=== PATIENT | female | born 1980 | race Native Hawaiian/Other Pacific Islander ===

== ENCOUNTER 2021-11-15 09:35 | Inpatient (IN) | payer MEDICAID, OTHER ==
[~2021-11-15] VITALS: Ht 162.6 cm; Wt 65.4 kg
[2021-11-15] MEDS ORDERED: cloNIDine HCL 0.1 MG TAB ONE (09:53)
[2021-11-15] MEDS ORDERED: cloNIDine HCL 0.1 MG TAB PO ONE (10:00)
[2021-11-15 10:53] LABS: Basophils # (auto) 0 10 ^3/uL (0-0.2); Basophils % (auto) 0.3 % (0.0-2.0); Eosinophils # (auto) 0 10 ^3/uL (0-0.8); Eosinophils % (auto) 0.3 % (0.0-7.0); Hematocrit 46.7 % (36.0-46.0); Hemoglobin 15.6 g/dL (12.2-16.2); Lymphocytes # (auto) 0.9 10 ^3/uL (0.4-5.4); Lymphocytes % (auto) 10.2 % (10.0-50.0); Mean Corpuscular Hemoglobin 33.9 pg (28.0-32.0); Mean Corpuscular Hgb Conc. 33.4 g/dL (32.0-36.0); Mean Corpuscular Volume 101.4 fL (80.0-100.0); Monocytes # (auto) 0.3 10 ^3/uL (0-1.3); Monocytes % (auto) 3.9 % (0.0-12.0); Neutrophils # (auto) 7.5 10 ^3/uL (1.6-8.6); Neutrophils % (auto) 85.3 % (37.0-80.0); Nucleated Red Blood Cells % 0.2 %; Red Blood Cells 4.61 10^6/uL (4.0-5.20); Red Cell Distribution Width 15.9 % (11.8-14.3); White Blood Cell 8.8 10^3/uL (4.4-10.8)
[2021-11-15 11:14] LABS: Albumin 3.2 g/dL (3.4-5.0); Calcium 6.8 mg/dL (8.5-10.1); Potassium 3.7 mmol/L (3.5-5.1)
[2021-11-15 11:23] LABS: BUN/Creatinine Ratio 13.7; Bilirubin, Total 2.1 mg/dL (0.2-1.0); Total Protein 7.2 g/dL (6.4-8.2)
[2021-11-15] MEDS ORDERED: SODIUM CHLORIDE 0.9% 1,000 ML IV ONE ×2 (12:30)
[2021-11-15] MEDS ORDERED: cefTRIAXone 1GM/50ML D5W 50 ML IV ONE (12:30)
[2021-11-15 13:39] LABS: Alcohol, Urine < 3.0 mg/dL (0-10); Amphetamine Screen, Urine NEGATIVE (NEGATIVE); Barbiturate Scree,Urine NEGATIVE (NEGATIVE); Benzodiazephine Screen, Urine NEGATIVE (NEGATIVE); Cannabinoid Screen, Urine NEGATIVE (NEGATIVE); Cocaine Screen, Urine NEGATIVE (NEGATIVE); Opiate Scree,Urine NEGATIVE (NEGATIVE); Phencyclidine Screen, Urine NEGATIVE (NEGATIVE); Urine Bacteria NONE SEEN /hpf (None Seen); Urine Blood 1+ /uL (Negative); Urine Hyaline Cast FEW /lpf (0 - 2); Urine Mucus FEW (None Seen); Urine Specific Gravity 1.035 (1.001-1.035); Urine WBC 58 /hpf (0 - 5)
[2021-11-15 13:41] LABS: Lactic Acid w/Reflex 3.2 mmol/L (0.4-2.0)
[2021-11-15] MEDS ORDERED: IOHEXOL 300 MG/ML 100ML BOTTLE IJ ONE (13:52)
[2021-11-15] MEDS ORDERED: DEXTROSE (50%) 50ML SYRG IV PRN (17:15)
[2021-11-15] MEDS ORDERED: SODIUM CHLORIDE 0.9% 1,000 ML IV SCH (17:15)
[2021-11-15] MEDS ORDERED: ONDANSETRON HCL 4 MG/2 ML VIAL IV PRN (17:15)
[2021-11-15] MEDS ORDERED: ACETAMINOPHEN 325 MG TAB PO PRN (17:15)
[2021-11-15] MEDS ORDERED: DOCUSATE SOD 100 MG CAP PO PRN (17:15)
[2021-11-15] MEDS ORDERED: D5W/SOD CHL 0.45%/KCL 20MEQ 1,000 ML IV ONE (17:15)
[2021-11-15 17:50] LABS: Magnesium 1.4 mg/dL (1.6-2.6); Phosphorus 1.8 mg/dL (2.5-4.90)
[2021-11-15 18:50] LABS: Lactic Acid w/Reflex 2.7 mmol/L (0.4-2.0)
[2021-11-15] MEDS: InsuLIN REG 1unit/0.01ml Soln (100units/ml) SC SCH (19:08)
[2021-11-15] MEDS: ACCU-CHEK COMFORT CURVE STRIP VI SCH (19:09)
[2021-11-15] MEDS: MORPHINE SULFATE INJ 2 MG/ml SYRG IV PRN (20:33)
[2021-11-15] MEDS: SOD CHL 0.9%/ KCL 20MEQ 1,000 ML IV SCH (20:42)
[2021-11-15 23:47] VITALS: BP 141/101
[2021-11-16] MEDS: MORPHINE SULFATE INJ 2 MG/ml SYRG IV PRN ×5 (01:15→11:10)
[2021-11-16] MEDS: InsuLIN REG 1unit/0.01ml Soln (100units/ml) SC SCH ×5 (01:21→23:25)
[2021-11-16] MEDS: ACCU-CHEK COMFORT CURVE STRIP VI SCH ×5 (01:22→23:23)
[2021-11-16] MEDS: SOD CHL 0.9%/ KCL 20MEQ 1,000 ML IV SCH (03:20)
[2021-11-16 05:00] VITALS: BP 139/99
[2021-11-16 07:00] LABS: Basophils # (auto) 0 10 ^3/uL (0-0.2); Eosinophils # (auto) 0 10 ^3/uL (0-0.8); Mean Corpuscular Hemoglobin 33.4 pg (28.0-32.0); Monocytes # (auto) 0.3 10 ^3/uL (0-1.3); Monocytes % (auto) 4.6 % (0.0-12.0); White Blood Cell 7.5 10^3/uL (4.4-10.8)
[2021-11-16 07:02] LABS: Basophils % (auto) 0.4 % (0.0-2.0); Eosinophils % (auto) 0.7 % (0.0-7.0); Hematocrit 39.6 % (36.0-46.0); Lymphocytes # (auto) 0.9 10 ^3/uL (0.4-5.4); Lymphocytes % (auto) 12.1 % (10.0-50.0); Mean Corpuscular Hgb Conc. 32.9 g/dL (32.0-36.0); Mean Corpuscular Volume 101.4 fL (80.0-100.0); Neutrophils # (auto) 6.2 10 ^3/uL (1.6-8.6); Neutrophils % (auto) 82.2 % (37.0-80.0); Nucleated Red Blood Cells % 0.1 %; Red Cell Distribution Width 16.1 % (11.8-14.3)
[2021-11-16 07:22] LABS: Albumin 2.4 g/dL (3.4-5.0); Potassium 3.5 mmol/L (3.5-5.1)
[2021-11-16 07:32] LABS: BUN/Creatinine Ratio 13.2; Bilirubin, Total 1.4 mg/dL (0.2-1.0); Total Protein 5.9 g/dL (6.4-8.2)
[2021-11-16 07:43] LABS: Calcium 5.2 mg/dL (8.5-10.1)
[2021-11-16 08:50] VITALS: BP 142/105
[2021-11-16] MEDS: FOLIC ACID 1 MG TAB PO SCH (09:36)
[2021-11-16] MEDS: ENOXAPARIN SOD 40 MG/0.4 ML SYRINGE SC SCH (09:36)
[2021-11-16] MEDS: PANTOPRAZOLE 40 MG/10 ML VIAL INJ IV SCH (09:36)
[2021-11-16] MEDS: cefTRIAXone 1GM/50ML D5W 50 ML IV SCH (09:37)
[2021-11-16] MEDS: MULTIPLE VITAMIN TAB PO SCH (09:37)
[2021-11-16] MEDS ORDERED: MULTIPLE VITAMIN TAB PO SCH (10:00)
[2021-11-16] MEDS ORDERED: chlordiazePOXIDE HCL 25 MG CAP PO PRN (12:00)
[2021-11-16] MEDS: FOLIC ACID 1 MG, MULTIPLE VITAMIN 10 ML, MAGNESIUM SULF SDV 50% 8 MEQ, THIAMINE INJ 100... INJ SCH ×5 (13:33)
[2021-11-16] MEDS ORDERED: SODIUM BICARBONATE 8.4 % INJ 50ML VIAL IV ONE (14:00)
[2021-11-16 14:22] VITALS: BP 134/94
[2021-11-16 16:04] VITALS: BP 133/92
[2021-11-16 20:20] VITALS: BP 137/93
[2021-11-16 22:00] VITALS: BP 137/93
[2021-11-16] MEDS: LORazepam 2MG/ML-1ML VIAL IV PRN (23:31)
[2021-11-17 05:00] VITALS: BP 137/87
[2021-11-17] MEDS: InsuLIN REG 1unit/0.01ml Soln (100units/ml) SC SCH ×3 (05:18→17:35)
[2021-11-17] MEDS: ACCU-CHEK COMFORT CURVE STRIP VI SCH ×3 (05:18→17:33)
[2021-11-17 06:34] LABS: Basophils # (auto) 0 10 ^3/uL (0-0.2); Basophils % (auto) 0.3 % (0.0-2.0); Eosinophils # (auto) 0 10 ^3/uL (0-0.8); Eosinophils % (auto) 0.6 % (0.0-7.0); Hematocrit 33.2 % (36.0-46.0); Hemoglobin 11.7 g/dL (12.2-16.2); Lymphocytes # (auto) 0.8 10 ^3/uL (0.4-5.4); Lymphocytes % (auto) 11.9 % (10.0-50.0); Mean Corpuscular Hemoglobin 35.4 pg (28.0-32.0); Mean Corpuscular Hgb Conc. 35.2 g/dL (32.0-36.0); Mean Corpuscular Volume 100.7 fL (80.0-100.0); Monocytes # (auto) 0.4 10 ^3/uL (0-1.3); Monocytes % (auto) 5.6 % (0.0-12.0); Neutrophils # (auto) 5.7 10 ^3/uL (1.6-8.6); Neutrophils % (auto) 81.6 % (37.0-80.0); Red Blood Cells 3.29 10^6/uL (4.0-5.20); Red Cell Distribution Width 16.2 % (11.8-14.3)
[2021-11-17 06:45] LABS: Albumin 2.2 g/dL (3.4-5.0)
[2021-11-17 06:49] LABS: BUN/Creatinine Ratio 11.2; Bilirubin, Total 1.6 mg/dL (0.2-1.0); Total Protein 5.8 g/dL (6.4-8.2)
[2021-11-17 07:08] LABS: Calcium 5.2 mg/dL (8.5-10.1); Potassium 2.7 mmol/L (3.5-5.1)
[2021-11-17] MEDS ORDERED: POTASSIUM EFFERVESENT TAB 25 MEQ PO ONE (07:45)
[2021-11-17 09:00] VITALS: BP 125/81
[2021-11-17] MEDS: CALCIUM GLUC 1,000mg/50ml-NS 50 ML IV SCH ×2 (09:09→10:01)
[2021-11-17] MEDS: cefTRIAXone 1GM/50ML D5W 50 ML IV SCH (09:12)
[2021-11-17] MEDS: FOLIC ACID 1 MG TAB PO SCH (10:09)
[2021-11-17] MEDS: ENOXAPARIN SOD 40 MG/0.4 ML SYRINGE SC SCH (10:10)
[2021-11-17] MEDS: MULTIPLE VITAMIN TAB PO SCH (10:10)
[2021-11-17] MEDS: PANTOPRAZOLE 40 MG/10 ML VIAL INJ IV SCH (10:11)
[2021-11-17 13:00] VITALS: BP 140/92
[2021-11-17] MEDS: FOLIC ACID 1 MG, MULTIPLE VITAMIN 10 ML, MAGNESIUM SULF SDV 50% 8 MEQ, THIAMINE INJ 100... INJ SCH ×5 (13:03)
[2021-11-17 16:44] VITALS: BP 127/85
[2021-11-17 20:25] VITALS: BP 130/86
[2021-11-17] MEDS: POTASSIUM EFFERVESENT TAB 25 MEQ PO SCH (22:13)
[2021-11-17 22:21] VITALS: BP 130/86
[2021-11-18] VITALS (7 sets, daily range): BP systolic 118–138; BP diastolic 60–80
[2021-11-18] MEDS: ACCU-CHEK COMFORT CURVE STRIP VI SCH ×5 (00:05→23:16)
[2021-11-18] MEDS: IBUPROFEN 400 MG TAB PO PRN (00:44)
[2021-11-18] MEDS: InsuLIN REG 1unit/0.01ml Soln (100units/ml) SC SCH ×5 (05:20→23:16)
[2021-11-18 06:01] LABS: Calcium 6.7 mg/dL (8.5-10.1)
[2021-11-18 06:07] LABS: Albumin 2.3 g/dL (3.4-5.0); BUN/Creatinine Ratio 11.6; Total Protein 6.1 g/dL (6.4-8.2)
[2021-11-18] MEDS: cefTRIAXone 1GM/50ML D5W 50 ML IV SCH (08:47)
[2021-11-18] MEDS: PANTOPRAZOLE 40 MG/10 ML VIAL INJ IV SCH (09:33)
[2021-11-18] MEDS: FOLIC ACID 1 MG TAB PO SCH (09:33)
[2021-11-18] MEDS: ENOXAPARIN SOD 40 MG/0.4 ML SYRINGE SC SCH (09:33)
[2021-11-18] MEDS: MULTIPLE VITAMIN TAB PO SCH (09:33)
[2021-11-18] MEDS: FOLIC ACID 1 MG, MULTIPLE VITAMIN 10 ML, MAGNESIUM SULF SDV 50% 8 MEQ, THIAMINE INJ 100... INJ SCH ×5 (10:39)
[2021-11-18] MEDS ORDERED: POTASSIUM CHL 20 Meq TABLET PO ONE (12:00)
[2021-11-18] MEDS: metroNIDAZOLE 500MG/100ML 100 ML IV SCH ×2 (15:13→21:08)
[2021-11-18] MEDS: VANCOMYCIN HCL 125MG/5ML ORAL SOL PO SCH ×2 (17:36→23:09)
[2021-11-18] MEDS: POTASSIUM EFFERVESENT TAB 25 MEQ PO SCH (21:09)
[2021-11-18] MEDS: LORazepam 2MG/ML-1ML VIAL IV PRN (21:25)
[2021-11-18] MEDS: MORPHINE SULFATE INJ 2 MG/ml SYRG IV PRN (22:23)
[2021-11-19 05:00] VITALS: BP 121/73
[2021-11-19 05:06] LABS: Albumin 2.2 g/dL (3.4-5.0); BUN/Creatinine Ratio 7.6; Calcium 7.8 mg/dL (8.5-10.1); Potassium 3.6 mmol/L (3.5-5.1)
[2021-11-19 05:09] LABS: Total Protein 6.5 g/dL (6.4-8.2)
[2021-11-19] MEDS: IBUPROFEN 400 MG TAB PO PRN (05:30)
[2021-11-19] MEDS: metroNIDAZOLE 500MG/100ML 100 ML IV SCH (05:41)
[2021-11-19] MEDS: VANCOMYCIN HCL 125MG/5ML ORAL SOL PO SCH (05:41)
[2021-11-19] MEDS: ACCU-CHEK COMFORT CURVE STRIP VI SCH (06:10)
[2021-11-19] MEDS: InsuLIN REG 1unit/0.01ml Soln (100units/ml) SC SCH (06:11)
[2021-11-19 09:00] VITALS: BP 113/71
[2021-11-19] MEDS: cefTRIAXone 1GM/50ML D5W 50 ML IV SCH (09:10)
[2021-11-19] MEDS: PANTOPRAZOLE 40 MG/10 ML VIAL INJ IV SCH (09:10)
[2021-11-19] MEDS: FOLIC ACID 1 MG TAB PO SCH (09:11)
[2021-11-19] MEDS: MULTIPLE VITAMIN TAB PO SCH (09:11)
[2021-11-19] MEDS: ENOXAPARIN SOD 40 MG/0.4 ML SYRINGE SC SCH (09:12)
[2021-11-19] MEDS ORDERED: VANC250PO PO (09:50)
[2021-11-19] MEDS ORDERED: METR500T PO (09:50)
[2021-11-19] MEDS ORDERED: THIA100T13 PO (09:50)
[2021-11-19] MEDS ORDERED: PANT40T PO (09:50)
[2021-11-19] MEDS ORDERED: FOLI1TAB6 PO (09:50)
[2021-11-19 11:34] VITALS: BP 107/87
[2021-11-21 10:53] LABS: Hepatitis B Surface Antibody Negative (Negative)
[2021-11-21 12:34] LABS: Hepatitis A Total Antibody Negative (Negative)
[2021-11-21 13:24] LABS: Hepatitis C Antibody Negative (Negative)
== END 2021-11-19 13:50 | disposition home or self-care (01) | DRG 282 ==
LOC: ER 09:35 → OVERFLOW 17:13 → WEST WING 22:40
PROVIDERS: ADMIT Nurse Practitioner Family; ATTEND Family Medicine
DX: K85.20 Alcohol induced acute pancreatitis without necrosis or infection (principal); N17.9 Acute kidney failure, unspecified; R18.8 Other ascites; A04.72 Enterocolitis due to Clostridium difficile, not specified as recurrent; E44.1 Mild protein-calorie malnutrition; E83.51 Hypocalcemia; K76.0 Fatty (change of) liver, not elsewhere classified; E87.1 Hypo-osmolality and hyponatremia; R73.9 Hyperglycemia, unspecified; Z20.822 Contact with and (suspected) exposure to COVID-19; F10.20 Alcohol dependence, uncomplicated; E86.0 Dehydration; E87.6 Hypokalemia; Z56.0 Unemployment, unspecified; Z68.24 Body mass index [BMI] 24.0-24.9, adult; Z71.51 Drug abuse counseling and surveillance of drug abuser
CPT/HCPCS: 36415; 74176; 76705; 80053; 80307; 80320; 81001; 82140; 82607; 82746; 82962; 83036; 83605; 83615; 83690; 83735; 84100; 85025; 86704; 86706; 86708; 86803; 87040; 87086; 87340; 87493; 96365; 96367; 96375; C9113; G0378; J0696; J1815; J2405; J3490

== ENCOUNTER 2024-11-26 17:45 | Inpatient (IN) | payer MEDICAID ==
[~2024-11-26] VITALS: Ht 162.6 cm; Wt 60.0 kg
[~2024-11-26 17:45] MED LIST: FOLI-119 PO; METR500T PO; PANT40T PO; THIA100T13 PO; VANC250PO PO
[2024-11-26 18:00] VITALS: PULSE 78; RESP 16; O2SAT 96
--- NOTE | 2024-11-26 18:47 | ED.PDOC ---
Altered Mental Status HPI Comments HPI: 44 year old female presents to the ED with a chief compliant of ETOH intoxication onset 2 days. Patient was brought in by her mother states patient has been consuming ETOH for the past 2 days. Patient states she has been drinking, "alot" does not states amount or when she began. Patient also states she fell, hit her face, experienced LOC. Patient is poor historian. Denies nausea, vomiting, diarrhea, headache, dizziness, chest pain, shortness of breath. No other symptoms or modifying factors present at this time. Initial Vitals BP: 138/93 HR: 99 RR: 20 O2: 95% Temp: 98.2 F Past Medical History: Denies Past Surgical History:Denies Social History: Denies ETOH, smoking, and drug use. Medications:Denies Allergies: NKDA KAHAUNAELE: ETOH, NASLA BRIDGE ABRASION, SWELLING. FALL, LOC HPI: Poor Historian. REVIEW OF SYSTEMS: CONSTITUTIONAL: Denies acute: fever, diaphoresis, chills, generalized weakness. HEAD: Denies acute: headache, photophobia Eyes: Denies acute: Double vision, vision loss, eye pain, eye discharge. EARS: Denies acute: tinnitus, hearing loss, ear discharge, ear pain, THROAT: Denies acute: sore throat, swelling, difficulty swallowing , pain with swallowi ng, change in voice. NECK: Denies acute: neck pain, neck swelling, stiff neck. HEART: Denies acute : chest pain, palpitations, LUNGS: Denies acute: SOB, wheezing, cough, hemoptysis ABDOMEN: Denies acute: abdominal pain, Nausea, Vomiting, diarrhea, melena , hematemesis, hematochezia SKIN: Denies acute: rash, redness, lesions, itchiness. EXTREMITIES: Denies acute: calf pain, numbness, tingling, weakness, denies pain in extremity. Denies acute: Low back pain. Neuro: Denies acute: focal neurological deficit, motor or sensory focal neurological deficit, tremors, seizure like activity, confusion, dizziness, change in mental status, loss of bowel or bladder function, cauda equina like symptoms. : Denies acute: dysuria, hematuria, flank pain, increase in urinary frequency. PSYCH: Denies acute: hallucination, suicidal ideation, homicidal ideation. FEMALE: Denies acute: abnormal vaginal bleeding, foul odor, unusual discharge. PHYSICAL EXAM: General: -----mi---acute distress, awake and alert. Head: normocephalic, atraumatic. Noted nasal bridge superficial laceration with some mild swelling. Neck: supple, trachea is midline, no swelling. Throat: Normal phonation. Eyes:, no erythema, no purulent discharge, no proptosis, no icterus. Heart: regular rate, regular rhythm, no significant murmur appreciated. Lungs: no apparent respiratory distress, Able to speak in full sentences. No wheezing, no rhonchi, no crackles. No stridors Clear to auscultation bilaterally. Abdomen: non tender to palpation, non distended, soft, no guarding, no rebound, + bowel sounds. Neuro: Awake, Alert, oriented to name, self, situation, follows commands GCS=15. Speech is normal. Skin: no petechia, no purpura, no cyanosis, non-pale, not jaundice. Lower extremities: --no - Pitting edema no deformity, no focal swelling, no calf TTP. Makes eye contact. moves all four extremities. Face: no apparent facial droop. Ambulating in the ED independently. No nystagmus. No nuchal rigidity, Kernig's sign, Brudzinski's sign, no meningeal signs. ED COURSE: DISCLAIMER: This medical document was created using an electronic medical record system with voice recognition software and computerized dictation system. Although this document has been carefully reviewed, there might still be some phonetic and typographical errors. Occasional wrong-word or "sound-alike" substitutions may have occurred due to the inherent limitations of voice recognition software. These areas are purely typographical due to imperfections of the software programs and do not reflect any compromise in the patient's medical care. Please read the chart carefully and recognize, using context, where these substitutions have occurred. Chief Complaint: ETOH Time Seen by MD: 18:40 Reviewed Notes: Medications, Allergies Allergies: Coded Allergies: No Known Drug Allergy (Verified Allergy, Unknown, 11/15/21) Home Meds Active Scripts Pantoprazole Sodium Sesquihydr (Pantoprazole Sodium) 40 Mg Tab, 40 MG PO BID, #6 0 TAB Prov:VICENTE HATHAWAY MD 11/19/21 Folic Acid (Folic Acid) 1 Mg Tab, 1 MG PO DAILY, #30 TAB Prov:VICENTE HATHAWAY MD 11/19/21 Thiamine HCl (Thiamine Hydrochloride) 100 Mg Tab, 100 MG PO DAILY, #30 TAB Prov:VICENTE HATHAWAY MD 11/19/21 Metronidazole (Flagyl) 500 Mg Tab, 500 MG PO TID, #30 TAB Prov:VICENTE HATHAWAY MD 11/19/21 Vancomycin Hcl (Vancomycin Po) 250 Mg So, 250 MG PO Q6HR, #40 ML Prov:VICENTE HATHAWAY MD 11/19/21 Information Source: Patient, Relative (Mother) Mode of Arrival: Wheelchair Severity: Moderate Timing: Days Duration: Since onset Prehospital treatment: None Past Medical History PAST MEDICAL HISTORY: Liver Surgical History: Denies all surgeries FEED MANAGER History: No Pertinent FEED MANAGER History Family History Family History: Reviewed,noncontributory to illness Social History Smoker: Non-Smoker Alcohol: Heavy Drugs: Denies Drug Use Lives In: Home Was a procedure done? Was a procedure done?: No Differential Diagnosis (ALOC) Differential Diagnosis: Dehydration, Hypoglycemia, DKA, Encephalopathy, Meningitis, Sepsis, Hypoxemia, Seizure, Closed Head Injury, CVA, Mass Lesion, SAH, Drug Overdose, ETOH Intoxication, Heart Failure, Renal Failure X-Ray, Labs, Meds, VS Vital Signs Date Time Temp Pulse Resp B/P (MAP) Pulse Ox O2 Delivery O2 Flow Rate FiO2 11/27/24 04:00 85 16 150/101 (117) 96 11/27/24 02:00 85 14 139/83 (101) 99 11/27/24 00:00 79 16 160/101 (120) 98 11/26/24 22:00 76 16 144/97 (113) 97 11/26/24 21:10 74 16 97 Room Air* 0 21 11/26/24 20:00 98.8 82 13 134/92 (106) 96 98.8 11/26/24 18:00 78 16 96 Room Air* 0 21 11/26/24 18:00 78 16 128/83 (98) 96 11/26/24 17:46 98.2 99 20 138/93 95 98.2 Lab Test 11/27/24 04:06 11/27/24 02:10 11/27/24 00:15 11/27/24 00:08 Range/Units White Blood Count 7.3 # 4.4-10.8 10^3/uL Red Blood Count 3.99 L 4.0-5.20 10^6/uL Hemoglobin 12.1 L 12.2-16.2 g/dL Hematocrit 35.9 L 36.0-46.0 % Mean Corpuscular Volume 89.9 80.0-100.0 fL Mean Corpuscular Hemoglobin 30.3 28.0-32.0 pg Mean Corpuscular Hemoglobin Concent 33.6 32.0-36.0 g/dL Red Cell Distribution Width 15.7 H 11.8-14.3 % Platelet Count 340 140-450 10^3/uL Mean Platelet Volume 7.5 6.9-10.8 fL Neutrophils (%) (Auto) 67.9 37.0-80.0 % Lymphocytes (%) (Auto) 26.2 10.0-50.0 % Monocytes (%) (Auto) 4.6 0.0-12.0 % Eosinophils (%) (Auto) 0.8 0.0-7.0 % Basophils (%) (Auto) 0.5 0.0-2.0 % Neutrophils # (Auto) 4.9 1.6-8.6 10 ^3/uL Lymphocytes # (Auto) 1.9 0.4-5.4 10 ^3/uL Monocytes # (Auto) 0.3 0-1.3 10 ^3/uL Eosinophils # (Auto) 0.1 0-0.8 10 ^3/uL Basophils # (Auto) 0 0-0.2 10 ^3/uL Nucleated Red Blood Cells 0.0 % Sodium Level 143 136-145 mmol/L Potassium Level 3.3 L 3.5-5.1 mmol/L Chloride Level 106 98-107 mmol/L Carbon Dioxide Level 22 20-31 mmol/L Anion Gap 15 5-15 Blood Urea Nitrogen 8 L 9-23 mg/dL Creatinine 0.64 # 0.550-1.02 mg/dL Glomerular Filtration Rate Calc 112 >90 mL/min BUN/Creatinine Ratio 12.5 10.0-20.0 Serum Glucose 91 74-106 mg/dL Hemoglobin A1c 5.3 <5.7 % A1C Lactic Acid Level 3.5 *H 3.3 *H 3.1 *H 0.4-2.0 mmol/L Calcium Level 7.4 L 8.7-10.4 mg/dL Phosphorus Level 2.0 L 2.4-5.1 mg/dL Creatine Kinase 139 34-145 U/L Vitamin B12 Level 368 211-911 pg/mL Vitamin D 25-Hydroxy Pending Thyroid Stimulating Hormone (TSH) 4.08 0.55-4.78 uIU/mL Plasma/Serum Blood Alcohol 255.0 H <10 mg/dL Urine Color Colorless Yellow Urine Clarity Turbid H Clear Urine pH 6.0 5.0-9.0 Urine Specific Glendo 1.010 1.001-1.035 Urine Protein Negative Negative Urine Ketones Negative Negative Urine Blood Negative Negative /uL Urine Nitrite Negative Negative Urine Bilirubin Negative Negative Urine Urobilinogen Normal Negative mg/dL Urine Leukocyte Esterase Negative Negative /uL Urine RBC None seen 0 - 4 /hpf Urine Microscopic WBC 5 0-5 /HPF Urine Squamous Epithelial Cells Few <5 /hpf Urine Bacteria Many H None Seen /hpf Urine Glucose Normal Normal mg/dL Urine Opiates Screen Neg NEGATIVE Urine Fentanyl Screen Neg NEGATIVE Urine Barbiturates Screen Neg NEGATIVE Urine Phencyclidine Screen Neg NEGATIVE Urine Amphetamines Screen Neg NEGATIVE Urine Benzodiazepines Screen Neg NEGATIVE Urine Cocaine Screen Neg NEGATIVE Urine Cannabinoids Screen Neg NEGATIVE Test 11/26/24 21:17 11/26/24 18:59 Range/Units Lactic Acid Level 3.0 *H 2.8 *H 0.4-2.0 mmol/L White Blood Count 5.5 4.4-10.8 10^3/uL Red Blood Count 4.36 4.0-5.20 10^6/uL Hemoglobin 13.1 12.2-16.2 g/dL Hematocrit 39.0 36.0-46.0 % Mean Corpuscular Volume 89.5 80.0-100.0 fL Mean Corpuscular Hemoglobin 30.0 28.0-32.0 pg Mean Corpuscular Hemoglobin Concent 33.5 32.0-36.0 g/dL Red Cell Distribution Width 15.8 H 11.8-14.3 % Platelet Count 356 140-450 10^3/uL Mean Platelet Volume 7.4 6.9-10.8 fL Neutrophils (%) (Auto) 48.8 37.0-80.0 % Lymphocytes (%) (Auto) 43.0 10.0-50.0 % Monocytes (%) (Auto) 6.8 0.0-12.0 % Eosinophils (%) (Auto) 0.9 0.0-7.0 % Basophils (%) (Auto) 0.5 0.0-2.0 % Neutrophils # (Auto) 2.7 1.6-8.6 10 ^3/uL Lymphocytes # (Auto) 2.4 0.4-5.4 10 ^3/uL Monocytes # (Auto) 0.4 0-1.3 10 ^3/uL Eosinophils # (Auto) 0 0-0.8 10 ^3/uL Basophils # (Auto) 0 0-0.2 10 ^3/uL Nucleated Red Blood Cells 0.0 % Sodium Level 147 H 136-145 mmol/L Potassium Level 3.3 L 3.5-5.1 mmol/L Chloride Level 109 H 98-107 mmol/L Carbon Dioxide Level 23 20-31 mmol/L Anion Gap 15 5-15 Blood Urea Nitrogen 11 9-23 mg/dL Creatinine 0.92 0.550-1.02 mg/dL Glomerular Filtration Rate Calc 79 >90 mL/min BUN/Creatinine Ratio 12.0 10.0-20.0 Serum Glucose 116 H 74-106 mg/dL Calcium Level 8.0 L 8.7-10.4 mg/dL Magnesium Level 2.1 1.6-2.6 mg/dL Total Bilirubin 0.9 0.2-1.0 mg/dL Aspartate Amino Transferase (AST) 31 13-40 U/L Alanine Aminotransferase (ALT) 21 7-40 U/L Alkaline Phosphatase 68 46-116 U/L Total Protein 7.4 5.7-8.2 g/dL Albumin 4.3 3.2-4.8 g/dL Plasma/Serum Blood Alcohol 426.5 *H <10 mg/dL Current Medications Medications (Trade) Dose Ordered Sig/Trent Route Start Time Stop Time Status Last Admin Sodium Chloride 1,000 ml @ 1,000 mls/hr Q1H ONCE IV 11/26/24 20:45 11/26/24 21:44 DC 11/26/24 21:22 Thiamine HCl 100 mg ONCE ONCE PO 11/26/24 20:45 11/26/24 20:49 DC 11/26/24 21:26 Sodium Chloride 1,000 ml @ 1,000 mls/hr Q1H ONCE IV 11/27/24 01:00 11/27/24 01:59 DC 11/27/24 00:[address] [address] Ph: [phone] DIAGNOSTIC IMAGING Diagnostic Imaging Report : [id number] Signed PATIENT: PORTER SZYMANSKI ACCT: [id number] UNIT: [id number] : 1980 LOC: ER ROOM / BED: / AGE / SEX: 44 / F ADM STATUS: REG ER SERVICE 1840 ORDERING PHYSICIAN: MEHUL JOHNSON DO PROCEDURE(s): FAC2C - MAXILLOFACIAL WITHOUT REASON: ETOH, FALL HEAD INJURY ORDER NUMBER(s): [id number], ACCESSION NUMBER(s): [id number] CT MAXILLOFACIAL WITHOUT INDICATION: ETOH, FALL HEAD INJURY TECHNIQUE: Noncontrast axial images of the facial bones are then obtained along with coronal and sagittal reformatted images. All CT scans at this facility use dose modulation, iterative reconstruction, and/or weight based dosing when appropriate to reduce radiation dose to as low as reasonably achievable. COMPARISON: CT HEAD WITHOUT CONTRAST on DOS: 11/26/24 FINDINGS: FACIAL BONES: The nasal, lacrimal, inferior nasal sridevi, and palatine bones are intact. The vomer and perpendicular plate of the ethmoid are intact. The zygomatic bones are intact. The maxilla is intact. The mandible is intact. PARANASAL SINUSES: The bony margins of the paranasal sinuses are intact. There is no air fluid level within the sinuses. The paranasal sinuses are essentially clear. ORBITS: The right and left globes are intact. The bony margins of the orbits are intact. The extraconal space is intact without inflammatory stranding of the extraconal fat. The extraocular muscles are symmetric. The intraconal space including the optic canal and nerve are symmetric. 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 Diffuse idiopathic skeletal hyperostosis. IMPRESSION: 1. No CT evidence of an acute facial fracture. ATED BY: JOE ROBLES MD DICTATED DATE/TIME: 11/26/242023 SIGNED BY: JOE ROBLES MD SIGNED DATE/TIME: 11/26/242023 CC: [place] [id number] Ph: [phone] DIAGNOSTIC IMAGING Diagnostic Imaging Report : [id number] Signed PATIENT: PORTER SZYMANSKI ACCT: [id number] UNIT: [id number] : 1980 LOC: ER ROOM / BED: / AGE / SEX: 44 / F ADM STATUS: REG ER SERVICE 39 ORDERING PHYSICIAN: MEHUL JOHNSON DO PROCEDURE(s): HWOCT - HEAD WITHOUT CONTRAST REASON: ETOH, FALL HEAD INJURY ORDER NUMBER(s): [id number], ACCESSION NUMBER(s): [id number] CT HEAD WITHOUT CONTRAST INDICATION: ETOH, FALL HEAD INJURY COMPARISON: CT CERVICAL WITHOUT CONTRAST on DOS: 11/26/24, CT MAXILLOFACIAL WITHOUT on DOS: 11/26/24 TECHNIQUE: CT of the head without intravenous contrast. RADIATION DOSE: CTDIvol: 64.86 mGy, DLP: 64.86 mGy*cm FINDINGS: There is no evidence of acute intracranial hemorrhage, extra-axial collection, mass effect, midline shift, herniation or hydrocephalus. The ventricles, sulci and cisterns are age appropriate. The lucas-white differentiation is intact. The visualized paranasal sinuses and mastoid air cells are clear. The surrounding soft tissues and osseous structures are unremarkable. IMPRESSION: 1. No evidence of acute intracranial hemorrhage, mass effect or hydrocephalus. ATED BY: SHERYL MAHAN MD DICTATED DATE/TIME: 11/26/242011 SIGNED BY: SHERYL MAHAN MD SIGNED DATE/TIME: 11/26/242011 CC: [address] [id number] Ph: [phone] DIAGNOSTIC IMAGING Diagnostic Imaging Report : [id number] Signed PATIENT: PORTER SZYMANSKI ACCT: [id number] UNIT: [id number] : 1980 LOC: ER ROOM / BED: / AGE / SEX: 44 / F ADM STATUS: REG ER SERVICE 39 ORDERING PHYSICIAN: MEHUL JOHNSON DO PROCEDURE(s): CS2 - CERVICAL WITHOUT CONTRAST REASON: ETOH, FALL HEAD INJURY ORDER NUMBER(s): [id number], ACCESSION NUMBER(s): [id number] EXAM: CT CERVICAL WITHOUT CONTRAST INDICATION: ETOH, FALL HEAD INJURY EXAM DATE: 11/26/2024 07:26 PM COMPARISON: CT HEAD WITHOUT CONTRAST on DOS: 11/26/24, CT MAXILLOFACIAL WITHOUT on DOS: 11/26/24 TECHNIQUE: Multiple axial CT images of the cervical spine were obtained using bone algorithm. Axial and coronal reformatting was done. Bone and soft tissue windows were reviewed. Radiation Dose Information: CT Dose: CTDI volume is 65 mGy. Dose-length product is 2646 mGy*cm FINDINGS: The cervical alignment is intact. No acute cervical spine fracture is identified. The vertebral body heights are intact. No suspicious osseous lesions are identified. Multiple anterior osteophytes are seen throughout the upper cervical spine. No significant degenerative changes are identified. There is no prevertebral soft tissue swelling. IMPRESSION: 1. No evidence of acute cervical spine fracture or traumatic malalignment. 2. All CT scans at this medical facility are performed using dose modulation techniques as appropriate to a performed exam including the following: Automated exposure control was utilized; adjustment of the MA and/or KV according to patient size; and use of iterative reconstruction technique. ATED BY: SHERYL MAHAN MD DICTATED DATE/TIME: 11/26/242018 SIGNED BY: SHERYL MAHAN MD SIGNED DATE/TIME: 11/26/242018 CC: Time of 1ST Reevaluation: 19:10 Reevaluation 1ST: Unchanged Patient Education/Counseling: Diagnosis, Treatment Family Education/Counseling: No Family Present Comments Despite at least 3 L of normal saline boluses, lactic acid continues to rise. Patient is ambulatory in the emergency department. MDM: patient presented with the above HPI.-alcohol intoxication-----workup was initiated. patient was found with the above mentioned diagnosis. the following medications were ordered: please refer to order lists of meds and tests obtained by myself Dr. Johnson. Patient ED course and VS have been stabilized. Patient has been reassessed in the ED and remained in a stable condition. Pertinent incidental findings were discussed with the patient and/or family. Patient/family voices understanding and is agreeable with plan. Patient has been observed in the ED adequate length of time to insure improvement/stability. Escalation of care considered: Consideration of escalation to observation or admission Patient was ADMITTED to the medicine team for further evaluation and treatment of their presentation. All the reports of any imaging studies that were ordered by myself were reviewed by myself. Departure 1 Departure Time of Disposition: 21:18 Impression: Primary Impression: Alcohol abuse Additional Impressions: Closed head injury Elevated lactic acid level Disposition: ADMITTED INPATIENT Admit to: Tele Condition: Guarded Discharged With: Self Critical Care Note Critical Care Time?: No I personally scribed for MEHUL JOHNSON DO ([email or web address]) on 11/26/24 at 18:47. Electronically submitted by Nathalia Nunez ([email or web address]). I personally scribed for MEHUL JOHNSON DO ([email or web address]) on 11/26/24 at 19:16. Electronically submitted by Nathalia Nunez ([email or web address]). I personally scribed for MEHUL JOHNSON DO ([email or web address]) on 11/26/24 at 20:36. Electronically submitted by Nathalia Nunez ([email or web address]). MEHUL JOHNSON DO Nov 26, 2024 18:47
[2024-11-26 19:25] LABS: Hematocrit 39.0 % (36.0-46.0); Hemoglobin 13.1 g/dL (12.2-16.2); Mean Corpuscular Hemoglobin 30.0 pg (28.0-32.0); Mean Corpuscular Volume 89.5 fL (80.0-100.0); Nucleated Red Blood Cells % 0.0 %
[2024-11-26 19:36] LABS: Alanine Aminotransferase 21 U/L (7-40); Albumin 4.3 g/dL (3.2-4.8); Alkaline Phosphatase 68 U/L (46-116); Anion Gap 15 (5-15); BUN/Creatinine Ratio 12.0 (10.0-20.0); Blood Urea Nitrogen 11 mg/dL (9-23); Carbon Dioxide 23 mmol/L (20-31); Magnesium 2.1 mg/dL (1.6-2.6); Total Protein 7.4 g/dL (5.7-8.2)
[2024-11-26 19:37] LABS: Bilirubin, Total 0.9 mg/dL (0.2-1.0); Calcium 8.0 mg/dL (8.7-10.4); Chloride 109 mmol/L (98-107); Glucose 116 mg/dL (74-106); Potassium 3.3 mmol/L (3.5-5.1); Sodium 147 mmol/L (136-145)
[2024-11-26 19:43] LABS: Lactic Acid w/Reflex 2.8 mmol/L (0.4-2.0)
--- NOTE | 2024-11-26 20:14 | DVH ---
CT HEAD WITHOUT CONTRAST INDICATION: ETOH, FALL HEAD INJURY COMPARISON: CT CERVICAL WITHOUT CONTRAST on DOS: 11/26/24, CT MAXILLOFACIAL WITHOUT on DOS: 11/26/24 TECHNIQUE: CT of the head without intravenous contrast. RADIATION DOSE: CTDIvol: 64.86 mGy, DLP: 64.86 mGy*cm FINDINGS: There is no evidence of acute intracranial hemorrhage, extra-axial collection, mass effect, midline s hift, herniation or hydrocephalus. The ventricles, sulci and cisterns are age appropriate. The lucas -white differentiation is intact. The visualized paranasal sinuses and mastoid air cells are clear. The surrounding soft tissues and osseous structures are unremarkable. IMPRESSION: 1. No evidence of acute intracranial hemorrhage, mass effect or hydrocephalus.
--- NOTE | 2024-11-26 20:21 | DVH ---
EXAM: CT CERVICAL WITHOUT CONTRAST INDICATION: ETOH, FALL HEAD INJURY EXAM DATE: 11/26/2024 07:26 PM COMPARISON: CT HEAD WITHOUT CONTRAST on DOS: 11/26/24, CT MAXILLOFACIAL WITHOUT on DOS: 11/26/24 TECHNIQUE: Multiple axial CT images of the cervical spine were obtained using bone algorithm. Axial a nd coronal reformatting was done. Bone and soft tissue windows were reviewed. Radiation Dose Information: CT Dose: CTDI volume is 65 mGy. Dose-length product is 2646 mGy*cm FINDINGS: The cervical alignment is intact. No acute cervical spine fracture is identified. The vertebral body heights are intact. No suspicious osseous lesions are identified. Multiple anterior osteophytes are s een throughout the upper cervical spine. No significant degenerative changes are identified. There is no prevertebral soft tissue swelling. IMPRESSION: 1. No evidence of acute cervical spine fracture or traumatic malalignment. 2. All CT scans at this medical facility are performed using dose modulation techniques as appropriat e to a performed exam including the following: Automated exposure control was utilized; adjustment of the MA and/or KV according to patient size; and use of iterative reconstruction technique.
--- NOTE | 2024-11-26 20:26 | DVH ---
CT MAXILLOFACIAL WITHOUT INDICATION: ETOH, FALL HEAD INJURY TECHNIQUE: Noncontrast axial images of the facial bones are then obtained along with coronal and sagi ttal reformatted images. All CT scans at this facility use dose modulation, iterative reconstruction, and/or weight based dosing when appropriate to reduce radiation dose to as low as reasonably achieva ble. COMPARISON: CT HEAD WITHOUT CONTRAST on DOS: 11/26/24 FINDINGS: FACIAL BONES: The nasal, lacrimal, inferior nasal sridevi, and palatine bones are intact. The vomer an d perpendicular plate of the ethmoid are intact. The zygomatic bones are intact. The maxilla is intac t. The mandible is intact. PARANASAL SINUSES: The bony margins of the paranasal sinuses are intact. There is no air fluid level within the sinuses. The paranasal sinuses are essentially clear. ORBITS: The right and left globes are intact. The bony margins of the orbits are intact. The extracon al space is intact without inflammatory stranding of the extraconal fat. The extraocular muscles are symmetric. The intraconal space including the optic canal and nerve are symmetric. 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 Dif fuse idiopathic skeletal hyperostosis. IMPRESSION: 1. No CT evidence of an acute facial fracture.
[2024-11-26] MEDS ORDERED: SODIUM CHLORIDE 0.9% 1,000 ML IV ONE (20:45)
[2024-11-26 21:10] VITALS: PULSE 74; RESP 16; O2SAT 97
[2024-11-26] MEDS: SODIUM CHLORIDE 0.9% 1,000 ML IV ONE (21:22)
[2024-11-26] MEDS: THIAMINE HCL 100 MG TAB PO ONE (21:26)
[2024-11-27 00:49] LABS: Lactic Acid w/Reflex 3.1 mmol/L (0.4-2.0)
[2024-11-27 00:51] LABS: Urine Protein, UAD Negative (Negative)
[2024-11-27] MEDS: SODIUM CHLORIDE 0.9% 1,000 ML IV ONE ×3 (00:59→05:39)
[2024-11-27 04:38] LABS: Hematocrit 35.9 % (36.0-46.0); Hemoglobin 12.1 g/dL (12.2-16.2); Mean Corpuscular Hemoglobin 30.3 pg (28.0-32.0); Mean Corpuscular Volume 89.9 fL (80.0-100.0); Nucleated Red Blood Cells % 0.0 %
--- NOTE | 2024-11-27 04:38 | DVHHPRES ---
History of Present Illness Resident Creating Document: MIKE JAVIER History of Present Illness Ms. Hidalgo is a 44 year old female with prior medical history of depression and alcohol abuse, who presents today with chief complaint of ethanol intoxication. The patient states she does not remember anything prior to waking up in the hospital. History of events was taken from her mother Corinne. Per her mother, the patient had spent the previous 2 days drinking. Yesterday when she got home from work, her mother found her lying on the floor with her face covered in blood, seemingly having fallen and hit her face with a table in the living room. Her mother subsequently brought her to the ED for further evaluation. On evaluation in the ED, the patient altered and hypertensive, other vitals were stable. Initial labs shows CBC within normal range, hypernatremia, hypokalemia, blood alcohol of 426.5, lactic acid 2.8, UDS negative, and UA without significant findings. CT cervical spine, head CT, and maxillofacial CT show no significant findings. The patient was started on IV fluids and antiemetic regimen. She was admitted for further workup and management. Personal history: Depression, alcohol abuse, pancreatitis Surgical history: Denies Allergies: Denies Social: States she drinks 1 bottle of vodka every other day for the last 2 years Review of Systems Review of Systems Constitutional: Refers nausea and vomiting, Denies weight loss, fever and chills. HEENT: Denies changes in vision and hearing. Respiratory: Denies shortness of breath and cough Cardiovascular: Denies chest discomfort or palpitations GI: Denies abdominal distention, abdominal pain, diarrhea : Denies dysuria and urinary frequency. Musculoskeletal: Denies symptoms Skin: Denies rash and pruritus. Neurological: Refers headache, denies vision problems Allergies: Coded Allergies: No Known Drug Allergy (Verified Allergy, Unknown, 11/15/21) Exam Vital Signs Vital Signs Date Time Temp Pulse Resp B/P (MAP) Pulse Ox O2 Delivery O2 Flow Rate FiO2 11/27/24 04:00 85 16 150/101 (117) 96 11/26/24 21:10 Room Air* 0 21 11/26/24 20:00 98.8 98.8 Exam General: The patient alert and oriented in person place and time. Patient following commands HEENT: Normocephalic, presence of small laceration on nasal bridge, normal re active pupils, EOM intact, pink conjunctiva, pink dry mucous membrane Respiratory/pulmonary: Bilateral chest expansion, no pain on palpation of chest wall, clear lungs bilaterally, vesicular murmurs present in almost all lung saxena, no associated crackles or wheezes. Cardiovascular: Normal RRR, normal S1 and S2, no murmurs Abdomen: Abdomen nondistended, normal bowel sounds, soft, there is no pain to palpation in any of the abdominal quadrants, no palpable masses. Extremities: No deformities, there is no peripheral edema present at the lower extremities, normal pulses Skin: As above, there is no sacral edema present at this time. Neurological: Intact cranial nerves with no focal neurologic deficits Labs/Xrays Labs Test 11/27/24 04:06 11/27/24 00:15 11/27/24 00:08 11/26/24 18:59 Range/Units Plasma/Serum Blood Alcohol 255.0 H <10 mg/dL Urine Color Colorless Yellow Urine Clarity Turbid H Clear Urine pH 6.0 5.0-9.0 Urine Specific [place] 1.010 1.001-1.035 Urine Protein Negative Negative Urine Ketones Negative Negative Urine Blood Negative Negative /uL Urine Nitrite Negative Negative Urine Bilirubin Negative Negative Urine Urobilinogen Normal Negative mg/dL Urine Leukocyte Esterase Negative Negative /uL Urine RBC None seen 0 - 4 /hpf Urine Microscopic WBC 5 0-5 /HPF Urine Squamous Epithelial Cells Few <5 /hpf Urine Bacteria Many H None Seen /hpf Urine Glucose Normal Normal mg/dL Eosinophils (%) (Auto) 0.9 0.0-7.0 % Eosinophils # (Auto) 0 0-0.8 10 ^3/uL Basophils # (Auto) 0 0-0.2 10 ^3/uL Nucleated Red Blood Cells 0.0 % Magnesium Level 2.1 1.6-2.6 mg/dL Total Bilirubin 0.9 0.2-1.0 mg/dL Aspartate Amino Transferase (AST) 31 13-40 U/L Alanine Aminotransferase (ALT) 21 7-40 U/L Alkaline Phosphatase 68 46-116 U/L Total Protein 7.4 5.7-8.2 g/dL Albumin 4.3 3.2-4.8 g/dL SEPSIS Sepsis Screen Date sepsis recognized/suspect: Nov 26, 2024 Time Sepsis recognized/suspect: 1800 Recent Procedure: No On Antibiotic Therapy: No Respiratory Rate >20: No Heart Rate >90: No Temp<36 C (96.8 F) or >38.3 C: No SBP <90 or MAP <65 mmHG: No New Acute Mental Status Change: No Is the patient on CPAP, BIPAP,: No Physician Orders Lactic Acid W/ Reflex Order (11/27/24 03:08) Hemoglobin A1c (11/27/24 03:50) Drug Screen (11/27/24 03:50) Complete Blood Count (11/27/24 03:50) Basic Metabolic Panel (11/27/24 03:50) Phosphorus (11/27/24 03:50) Thyroid Stimulating Hormone (11/27/24 03:50) Vitamin D, 25-Hydroxy (11/27/24 03:50) Vitamin B12 (11/27/24 03:50) NS (11/27/24 04:15) NS (11/27/24 04:15) Thiamine Inj (11/27/24 10:00) Multiple Vitamin Tablet (Mvi Tab) (11/27/24 04:15) Multiple Vitamin Tablet (Mvi Tab) (11/27/24 10:00) Ondansetron Hcl (Zofran) (11/27/24 04:15) Ondansetron Hcl (Zofran) (11/27/24 04:15) Lorazepam 2mg/Ml Inj (Ativan Inj) (11/27/24 04:15) Npo (Nothing By Mouth) Diet (11/27/24 Breakfast) Electrocardigram (11/27/24 04:11) Pantoprazole (Protonix) (11/27/24 04:15) Pantoprazole (Protonix) (11/27/24 10:00) Admit (11/27/24 04:11) Allergies (11/27/24 04:11) Code Status (11/27/24 04:11) Condition: Stable (11/27/24 04:11) Stat Ekg For Chest Pain (11/27/24 04:11) Notify Md Of Changes From Base (11/27/24 04:11) Emergency Dysrhythmia Protocol (11/27/24 04:11) Rhythm Strips Once Every Shift (11/27/24 04:11) Cuffing Machine Operator For 24 Hours (11/27/24 04:11) Vital Signs Date Time Temp Pulse Resp B/P (MAP) Pulse Ox O2 Delivery O2 Flow Rate FiO2 11/27/24 04:00 85 16 150/101 (117) 96 11/27/24 02:00 85 14 139/83 (101) 99 11/27/24 00:00 79 16 160/101 (120) 98 11/26/24 22:00 76 16 144/97 (113) 97 11/26/24 21:10 74 16 97 Room Air* 0 21 Laboratory Tests Test 11/26/24 18:59 11/26/24 21:17 11/27/24 00:15 11/27/24 02:10 Lactic Acid Level 2.8 mmol/L (0.4-2.0) *H 3.0 mmol/L (0.4-2.0) *H 3.1 mmol/L (0.4-2.0) *H 3.3 mmol/L (0.4-2.0) *H White Blood Count 5.5 10^3/uL (4.4-10.8) Test 11/27/24 04:06 Lactic Acid Level Pending White Blood Count Pending Medications Medications Dose Ordered Sig/Trent Route Start Time Stop Time Status Last Admin Dose Admin Sodium Chloride 1,000 ml @ 1,000 mls/hr Q1H ONCE IV 11/26/24 20:45 11/26/24 21:44 DC 11/26/24 21:22 1,000 MLS/HR Sodium Chloride 1,000 ml @ 1,000 mls/hr Q1H ONCE IV 11/27/24 01:00 11/27/24 01:59 DC 11/27/24 00:59 1,000 MLS/HR Thiamine HCl 100 mg ONCE ONCE PO 11/26/24 20:45 11/26/24 20:49 DC 11/26/24 21:26 100 MG Assessment/Plan Assessment/Plan Assessment and Plan: Acute Toxic Encephalopathy secondary to alcohol intoxication Chronic Alcohol Abuse: CIWA 7 - Blood alcohol concentration: 426.5 -> 255 - Thiamine 100 mg PO once - Thiamine 100 mg IV daily - Multivitamins 1 tablet PO daily - Zofran 4 mg IV q6 hours PRN - Monitor for alcohol withdrawal with serial CIWA score - NPO at this time - The patient states she wants help for quitting - Chest Xray to rule out possible aspiration - I have counseled the patient on the importance of complete drinking cessation for over 14 minutes. Lactic Acidosis secondary to above - 2.8 -> 3.5 - NS 1000 cc bolus IV x 4 - NS maintenance 75 cc/hr Nasal fracture ruled out - Maxillofacial CT: No evidence of acute facial fracture Cervical fracture ruled out - Cervical Spine CT: no evidence of acute cervical spine fracture or traumatic malalignment Depression Diet: NPO DVT prophylaxis: Not indicated patient is ambulatory GI prophylaxis: Protonix 40 mg IV daily Case discussed with Dr. Little Goals of care discussed with the patient and her mother, Corinne ([phone]) for over 30 minutes. FULL CODE. Plan discussed with: Patient, Other (Mother, Nurses) My Orders Orders - MIKE JAVIER Procedure Category Date Status Time Hemoglobin A1c LAB 11/27/24 In Process 03:50 Drug Screen LAB 11/27/24 Logged 03:50 Complete Blood Count LAB 11/27/24 In Process 03:50 Basic Metabolic Panel LAB 11/27/24 In Process 03:50 Phosphorus LAB 11/27/24 In Process 03:50 Thyroid Stimulating LAB 11/27/24 In Process Hormone 03:50 Vitamin D, 25-Hydroxy LAB 11/27/24 In Process 03:50 Vitamin B12 LAB 11/27/24 In Process 03:50 NS PHA 11/27/24 Transmitted 04:15 NS PHA 11/27/24 Transmitted 04:15 Thiamine Inj PHA 11/27/24 Transmitted 10:00 Multiple Vitamin PHA 11/27/24 Transmitted Tablet (Mvi Tab) 04:15 Multiple Vitamin PHA 11/27/24 Transmitted Tablet (Mvi Tab) 10:00 Ondansetron Hcl PHA 11/27/24 Transmitted (Zofran) 04:15 Ondansetron Hcl PHA 11/27/24 Verified (Zofran) 04:15 Lorazepam 2mg/Ml Inj PHA 11/27/24 Verified (Ativan Inj) 04:15 Npo (Nothing By DIET 11/27/24 Verified Mouth) Diet Breakfast Electrocardigram EKG 11/27/24 Transmitted 04:11 Pantoprazole PHA 11/27/24 Verified (Protonix) 04:15 Pantoprazole PHA 11/27/24 Verified (Protonix) 10:00 Admit ADMIT 11/27/24 Verified 04:11 Allergies SUSIE 11/27/24 Verified 04:11 Code Status CODE 11/27/24 Verified 04:11 Condition: Stable [facility] 11/27/24 Verified 04:11 Stat Ekg For Chest [facility] 11/27/24 Verified Pain 04:11 Notify Md Of Changes [facility] 11/27/24 Verified From Base 04:11 Emergency Dysrhythmia [facility] 11/27/24 Verified Protocol 04:11 Rhythm Strips Once [facility] 11/27/24 Verified Every Shift 04:11 Cuffing Machine Operator For [facility] 11/27/24 Verified 24 Hours 04:11 Date of Service: Nov 27, 2024 Billing Provider: KINJAL LITTLE MD Common Visit Codes: [id number] INP/OBS CARE (HIGH) Secondary Visit Codes: [id number] CARE PLAN 30 MINUTES MIKE JAVIER RESIDENT Nov 27, 2024 04:38 LISETTE CASTELLANOS RESIDENT Nov 27, 2024 08:27
[2024-11-27 04:46] LABS: Anion Gap 15 (5-15); Carbon Dioxide 22 mmol/L (20-31); Chloride 106 mmol/L (98-107); Sodium 143 mmol/L (136-145)
[2024-11-27 04:52] LABS: BUN/Creatinine Ratio 12.5 (10.0-20.0); Glucose 91 mg/dL (74-106)
[2024-11-27 05:00] LABS: Blood Urea Nitrogen 8 mg/dL (9-23); Calcium 7.4 mg/dL (8.7-10.4); Potassium 3.3 mmol/L (3.5-5.1)
[2024-11-27 05:10] LABS: Lactic Acid w/Reflex 3.5 mmol/L (0.4-2.0)
[2024-11-27] MEDS: PANTOPRAZOLE 40 MG/10 ML VIAL INJ IV ONE (05:46)
[2024-11-27] MEDS: ONDANSETRON HCL 4 MG/2 ML VIAL IV ONE (05:46)
[2024-11-27] MEDS: MULTIPLE VITAMIN TAB PO ONE (05:46)
[2024-11-27 05:48] LABS: Amphetamine Screen, Urine Neg (NEGATIVE); Barbiturate Scree,Urine Neg (NEGATIVE); Benzodiazephine Screen, Urine Neg (NEGATIVE); Cannabinoid Screen, Urine Neg (NEGATIVE); Cocaine Screen, Urine Neg (NEGATIVE); Opiate Scree,Urine Neg (NEGATIVE); Phencyclidine Screen, Urine Neg (NEGATIVE)
[2024-11-27] MEDS: SODIUM CHLORIDE 0.9% 1,000 ML IV SCH (06:33)
[2024-11-27] MEDS: POTASSIUM CHL 20MEQ/100ML 100 ML IV SCH (06:34)
--- NOTE | 2024-11-27 06:44 | DVH ---
CHEST RADIOGRAPH Indication: R/o aspiration Technique: Single frontal view of the chest was obtained COMPARISON: None FINDINGS: Lines and Tubes: None Lungs: Clear Pleura: No effusion. No pneumothorax. Cardiomediastinal contours: Unremarkable Bones: Unremarkable IMPRESSION: 1. No acute disease.
[2024-11-27 09:11] LABS: Lactic Acid w/Reflex 4.4 mmol/L (0.4-2.0)
[2024-11-27] MEDS: SODIUM CHLORIDE 0.9% 2,000 ML IV ONE (09:20)
[2024-11-27 10:00] VITALS: PULSE 83; RESP 17; O2SAT 97
[2024-11-27] MEDS: ONDANSETRON HCL 4 MG/2 ML VIAL IV PRN (10:46)
[2024-11-27] MEDS: PANTOPRAZOLE 40 MG/10 ML VIAL INJ IV SCH (10:46)
[2024-11-27] MEDS: MULTIPLE VITAMIN TAB PO SCH (10:46)
[2024-11-27] MEDS: THIAMINE 100mg/ml INJ (200mg/2ml VIAL) IV SCH (10:46)
[2024-11-27] MEDS: LORazepam 2MG/ML-1ML VIAL IV PRN (11:15)
[2024-11-27] MEDS ORDERED: TRAZ-184 PO (13:56)
--- NOTE | 2024-11-27 14:39 | DVHPN2 ---
Subjective Patient reports having headache, anxiety Reviewed: Care Plan, H&P, Labs Changes from previous H/P or p: No Changes General: Per HPI Objective Vitals Vital Signs Date Time Temp Pulse Resp B/P (MAP) Pulse Ox O2 Delivery O2 Flow Rate FiO2 11/27/24 12:22 97 Room Air* 0 21 11/27/24 12:00 98.7 79 16 145/98 (114) 98.7 Intake/Output Intake and Output 11/27/24 07:00 Intake Total 3000 ml Balance 3000 ml Intake IV Total 3000 ml General Appearance: Alert, Oriented X3, Cooperative, mild distress HEENT: PERRLA, Other (Nasal laceration) Lungs: Clear to auscultation, Normal air movement Cardiovascular: Normal S1, Normal S2 Back: Flank Tenderness Musculoskeletal: Normal sensory function, Normal motor function Neuro: Normal speech Skin: Dry, Intact Psych/Mental Status: Mental status NL, Mood NL Medications Current Medications Medications Dose Ordered Sig/Trent Route Start Time Stop Time Status Last Admin Dose Admin Sodium Chloride 1,000 ml @ 75 mls/hr [id number] IV 11/27/24 04:15 11/27/24 06:33 75 MLS/HR Thiamine HCl 100 mg DAILY IV 11/27/24 10:00 11/27/24 10:46 100 MG Multivitamins 1 tab DAILY PO 11/27/24 10:00 11/27/24 10:46 1 TAB Ondansetron HCl 4 mg Q6HPRN PRN IV 11/27/24 04:15 11/27/24 10:46 4 MG Lorazepam 2 mg Q2HR PRN IV 11/27/24 04:15 11/27/24 11:15 2 MG Pantoprazole Sodium 40 mg DAILY IV 11/27/24 10:00 11/27/24 10:46 40 MG Amlodipine Besylate 10 mg DAILY PO 11/28/24 10:00 Laboratory Results Laboratory Tests 11/27/24 04:06 Chemistry Test 11/26/24 18:59 11/27/24 04:06 Albumin 4.3 g/dL (3.2-4.8) Calcium Level 8.0 mg/dL (8.7-10.4) L 7.4 mg/dL (8.7-10.4) L Magnesium Level 2.1 mg/dL (1.6-2.6) Total Protein 7.4 g/dL (5.7-8.2) Phosphorus Level 2.0 mg/dL (2.4-5.1) L LFT Test 11/26/24 18:59 Alanine Aminotransferase (ALT) 21 U/L (7-40) Alkaline Phosphatase 68 U/L (46-116) Aspartate Amino Transferase (AST) 31 U/L (13-40) Total Bilirubin 0.9 mg/dL (0.2-1.0) HgA1c, TSH Test 11/27/24 04:06 Hemoglobin A1c 5.3 % A1C (<5.7) Thyroid Stimulating Hormone (TSH) 4.08 uIU/mL (0.55-4.78) Urinalysis Test 11/27/24 00:08 Urine Color Colorless (Yellow) Urine Clarity Turbid (Clear) H Urine pH 6.0 (5.0-9.0) Urine Specific [place] 1.010 (1.001-1.035) Urine Protein Negative (Negative) Urine Ketones Negative (Negative) Urine Blood Negative /uL (Negative) Urine Nitrite Negative (Negative) Urine Bilirubin Negative (Negative) Urine Urobilinogen Normal mg/dL (Negative) Urine Leukocyte Esterase Negative /uL (Negative) Urine RBC None seen /hpf (0 - 4) Urine Microscopic WBC 5 /HPF (0-5) Urine Squamous Epithelial Cells Few /hpf (<5) Urine Bacteria Many /hpf (None Seen) H Urine Glucose Normal mg/dL (Normal) Labs and/or images reviewed: Labs reviewed by me, Image(s) reviewed by me Assessment/Plan Assessment/Plan Impression: -toxic metabolic encephalopathy -acute alcohol exacerbation -depression -anxiety disorder -UTI Plan: -IV hydration -prn Ativan for anxiety, alcohol withdrawal symptoms -restart trazodone -start ciprofloxacin p.o. Total time spent with patient discussing and formulating plan of care: 35 minutes. This medical document was created using an electronic medical record system with [employer] dictation system. Although this document has been carefully reviewed, there may still be some phonetic and typographical errors. These areas are purely typographical due to imperfections of the software programs, and do not reflect any compromise in the patient's medical care. Plan discussed with: Patient, Other (RN) My Orders Orders - TARA GARZA NP Procedure Category Date Status Time Regular Diet DIET 11/27/24 Transmitted Dinner Amlodipine Tablet PHA 11/28/24 In Process (Norvasc Tablet) 10:00 Date of Service: Nov 27, 2024 Billing Provider: TARA GARZA NP Common Visit Codes: [id number] INP/OBS CARE(HIGH) TARA GARZA NP Nov 27, 2024 14:39
[2024-11-27] MEDS: LORazepam 0.5 MG TAB PO PRN (16:46)
[2024-11-27 23:10] VITALS: BP 143/91; PULSE 55; PULSE 77; RESP 14; TEMP 98.4; O2SAT 99
[2024-11-27 23:25] VITALS: BP 161/108; PULSE 80; RESP 16; TEMP 98.6; O2SAT 96
[2024-11-27] MEDS: CIPROFLOXACIN HCL 500 MG TAB PO SCH (23:37)
[2024-11-28] MEDS ORDERED: hydrALAZINE HCL 20 MG/ML VL IV PRN (00:30)
[2024-11-28] MEDS: FOLIC ACID 1 MG in D5W 5% 50 ML INJ ONE (00:30)
[2024-11-28] MEDS ORDERED: LORazepam 2MG/ML-1ML VIAL IV PRN (00:30)
[2024-11-28 01:00] VITALS: BP 143/91; PULSE 77; RESP 14; TEMP 98.4; O2SAT 99
[2024-11-28 05:00] VITALS: BP 144/97; PULSE 84; RESP 14; TEMP 98.4; O2SAT 99
[2024-11-28 08:00] VITALS: PULSE 65; PULSE 77; RESP 18; O2SAT 95
[2024-11-28] MEDS: FOLIC ACID 1 MG in D5W 5% 50 ML INJ SCH (08:49)
[2024-11-28 09:00] VITALS: BP 147/102; PULSE 74; RESP 17; TEMP 98.2; O2SAT 97
[2024-11-28 13:00] VITALS: BP 143/96; PULSE 68; RESP 17; TEMP 98.2; O2SAT 99
--- NOTE | 2024-11-28 13:47 | DVHDS2 ---
Discharge Summary Date of Admission Nov 27, 2024 at 04:11 Date of Discharge: Nov 28, 2024 Admitting Diagnosis Toxic metabolic encephalopathy Labs/Diagnostic Data: Laboratory Results Test 11/27/24 10:55 11/27/24 04:06 11/27/24 00:15 11/27/24 00:08 Lactic Acid Level 2.4 mmol/L (0.4-2.0) White Blood Count 7.3 10^3/uL (4.4-10.8) Red Blood Count 3.99 10^6/uL (4.0-5.20) Hemoglobin 12.1 g/dL (12.2-16.2) Hematocrit 35.9 % (36.0-46.0) Mean Corpuscular Volume 89.9 fL (80.0-100.0) Mean Corpuscular Hemoglobin 30.3 pg (28.0-32.0) Mean Corpuscular Hemoglobin Concent 33.6 g/dL (32.0-36.0) Red Cell Distribution Width 15.7 % (11.8-14.3) Platelet Count 340 10^3/uL (140-450) Mean Platelet Volume 7.5 fL (6.9-10.8) Neutrophils (%) (Auto) 67.9 % (37.0-80.0) Lymphocytes (%) (Auto) 26.2 % (10.0-50.0) Monocytes (%) (Auto) 4.6 % (0.0-12.0) Eosinophils (%) (Auto) 0.8 % (0.0-7.0) Basophils (%) (Auto) 0.5 % (0.0-2.0) Neutrophils # (Auto) 4.9 10 ^3/uL (1.6-8.6) Lymphocytes # (Auto) 1.9 10 ^3/uL (0.4-5.4) Monocytes # (Auto) 0.3 10 ^3/uL (0-1.3) Eosinophils # (Auto) 0.1 10 ^3/uL (0-0.8) Basophils # (Auto) 0 10 ^3/uL (0-0.2) Nucleated Red Blood Cells 0.0 % Sodium Level 143 mmol/L (136-145) Potassium Level 3.3 mmol/L (3.5-5.1) Chloride Level 106 mmol/L (98-107) Carbon Dioxide Level 22 mmol/L (20-31) Anion Gap 15 (5-15) Blood Urea Nitrogen 8 mg/dL (9-23) Creatinine 0.64 mg/dL (0.550-1.02) Glomerular Filtration Rate Calc 112 mL/min (>90) BUN/Creatinine Ratio 12.5 (10.0-20.0) Serum Glucose 91 mg/dL (74-106) Hemoglobin A1c 5.3 % A1C (<5.7) Calcium Level 7.4 mg/dL (8.7-10.4) Phosphorus Level 2.0 mg/dL (2.4-5.1) Creatine Kinase 139 U/L (34-145) Vitamin B12 Level 368 pg/mL (211-911) Vitamin D 25-Hydroxy 49.5 ng/mL (30.0-100) Thyroid Stimulating Hormone (TSH) 4.08 uIU/mL (0.55-4.78) Plasma/Serum Blood Alcohol 255.0 mg/dL (<10) Urine Color Colorless (Yellow) Urine Clarity Turbid (Clear) Urine pH 6.0 (5.0-9.0) Urine Specific [place] 1.010 (1.001-1.035) Urine Protein Negative (Negative) Urine Ketones Negative (Negative) Urine Blood Negative /uL (Negative) Urine Nitrite Negative (Negative) Urine Bilirubin Negative (Negative) Urine Urobilinogen Normal mg/dL (Negative) Urine Leukocyte Esterase Negative /uL (Negative) Urine RBC None seen /hpf (0 - 4) Urine Microscopic WBC 5 /HPF (0-5) Urine Squamous Epithelial Cells Few /hpf (<5) Urine Bacteria Many /hpf (None Seen) Urine Glucose Normal mg/dL (Normal) Urine Opiates Screen Neg (NEGATIVE) Urine Fentanyl Screen Neg (NEGATIVE) Urine Barbiturates Screen Neg (NEGATIVE) Urine Phencyclidine Screen Neg (NEGATIVE) Urine Amphetamines Screen Neg (NEGATIVE) Urine Benzodiazepines Screen Neg (NEGATIVE) Urine Cocaine Screen Neg (NEGATIVE) Urine Cannabinoids Screen Neg (NEGATIVE) Test 11/26/24 18:59 Magnesium Level 2.1 mg/dL (1.6-2.6) Total Bilirubin 0.9 mg/dL (0.2-1.0) Aspartate Amino Transferase (AST) 31 U/L (13-40) Alanine Aminotransferase (ALT) 21 U/L (7-40) Alkaline Phosphatase 68 U/L (46-116) Total Protein 7.4 g/dL (5.7-8.2) Albumin 4.3 g/dL (3.2-4.8) Other Laboratory Tests 11/27/24 04:06 Brief Hx & Hospital Course: History of Present Illness Ms. Hidalgo is a 44 year old female with prior medical history of depression and alcohol abuse, who presents today with chief complaint of ethanol intoxication. The patient states she does not remember anything prior to waking up in the hospital. History of events was taken from her mother Corinne. Per her mother, the patient had spent the previous 2 days drinking. Yesterday when she got home from work, her mother found her lying on the floor with her face covered in blood, seemingly having fallen and hit her face with a table in the living room. Her mother subsequently brought her to the ED for further evaluation. On evaluation in the ED, the patient altered and hypertensive, other vitals were stable. Initial labs shows CBC within normal range, hypernatremia, hypokalemia, blood alcohol of 426.5, lactic acid 2.8, UDS negative, and UA without significant findings. CT cervical spine, head CT, and maxillofacial CT show no significant findings. The patient was started on IV fluids and antiemetic regimen. She was admitted for further workup and management. Course of hospitalization: Patient was given aggressive IV hydration, MVI, thiamine. Patient's home medications reviewed. Patient was restarted on trazodone with p.r.n. anxiety medications for signs of withdrawal or anxiety. Patient is asymptomatic today. All CT scans negative for any acute fractures. She is instructed to follow up with her PCP and psychiatrist as scheduled appointments. Patient was also instructed to abstain from alcohol while being placed on prescription medications for depression and anxiety. Patient verbalized then understanding and is agreeable. All questions answered. Physical examination General: Alert and Oriented x3. No acute distress. Well-nourished. Eyes: EOMI. Anicteric. HENT: Moist mucous membranes. Lungs: Clear to auscultation bilaterally. No accessory muscle use. Cardiovascular: Regular rate and rhythm. No murmur. No JVD. Abdomen: Soft, non-tender and non-distended. No palpable masses. Extremities: No edema. Non-tender. Skin: No rashes or lesions. Warm. Neurologic: No focal neurological deficits. CN II-XII grossly intact, but not individually tested. Psychiatric: Cooperative. Appropriate mood and affect. Total time spent with patient discussing and formulating plan of care: 35 minutes. This medical document was created using an electronic medical record system with [employer] system. Although this document has been carefully reviewed, there may still be some phonetic and typographical errors. These areas are purely typographical due to imperfections of the software programs, and do not reflect any compromise in the patient's medical care. Condition at Discharge: Guarded Final Diagnosis/Problems List Syncope with collapse secondary acute alcohol intoxication and prescription drug use -acute alcohol exacerbation -depression -anxiety disorder -UTI Discharge Disposition: Home Discharge Instruct/Medications Diet: Regular Activity: No Restrictions, As Tolerated Follow Up/Referral: Follow up with PCP and psychiatrist at next available appointment Medications: Continue all home medications Scheduled Folic Acid (Folic Acid), 1 MG PO DAILY Metronidazole (Flagyl), 500 MG PO TID Pantoprazole Sodium Sesquihydr (Pantoprazole Sodium), 40 MG PO BID Thiamine HCl (Thiamine Hydrochloride), 100 MG PO DAILY Vancomycin Hcl (Vancomycin Po), 250 MG PO Q6HR Miscellaneous Medications Trazodone HCl (Trazodone Hydrocloride), 1 TAB PO, (Reported) 36 Discharge Statement: "Patient was advised to return to the ER or call 911 if any headaches, dizziness, shortness of breath, chest pain, abdominal pain, bleeding, fevers, or worsening of medical condition. Patient was counseled about treatment plan, medications, possible side effects, patientverbalized understanding. All questions were answered to the best of my ability. This discharge took greater then 30 minutes in planning, reviewing documentation, counseling the patient, and discussing with other team members." ASSESSMENT ASSESSMENT Assessment Syncope with collapse secondary acute alcohol intoxication and prescription drug use Date of Service: Nov 28, 2024 Billing Provider: TARA GARZA NP Common Visit Codes: [id number] DISCH DAY >30min TARA GARZA NP Nov 28, 2024 13:47
[2024-11-28 14:59] VITALS: BP 133/74; PULSE 66; RESP 18; TEMP 36.8; O2SAT 95
== END 2024-11-28 18:00 | disposition home or self-care (01) | DRG 52 ==
LOC: ER 17:49 → OVERFLOW 11-27 04:11 → TELE-CENTR 11-27 23:00
PROVIDERS: ADMIT Nurse Practitioner Acute Care; ATTEND Nurse Practitioner Acute Care
DX: G92.8 Other toxic encephalopathy (principal); E87.20 Acidosis, unspecified; S09.90XA Unspecified injury of head, initial encounter; N39.0 Urinary tract infection, site not specified; F41.9 Anxiety disorder, unspecified; F32.A Depression, unspecified; F10.129 Alcohol abuse with intoxication, unspecified; Y90.8 Blood alcohol level of 240 mg/100 ml or more; W18.39XA Other fall on same level, initial encounter; Y93.89 Activity, other specified; Y92.89 Other specified places as the place of occurrence of the external cause; Y99.8 Other external cause status; E87.6 Hypokalemia
CPT/HCPCS: 36415; 70450; 70486; 71045; 72125; 80048; 80053; 80307; 80320; 81001; 82306; 82550; 82607; 83036; 83605; 83735; 84100; 84443; 85025; G0378; J2405; J2470; J3480; J7060